=== PATIENT | male | born 1960 | race Caucasian/White ===

== ENCOUNTER 2023-09-04 04:11 | Inpatient (IN) | payer MEDICARE, SELFPAY ==
[2023-09-04] VITALS (23 sets, daily range): BP systolic 98–144; BP diastolic 61–98; PULSE 77–112; RESP 13–20; TEMP 36.1–36.8; O2SAT 88–98
--- NOTE | ~2023-09-04 | CT_ITS ---
CT of the Abdomen and Pelvis: Indication: Right flank pain Technique: 2.5 mm axial scans were obtained through the abdomen and pelvis following intravenous adm inistration of 100 cc of Omnipaque 350. Dose reduction technique was used on this scan by utilizing a utomated exposure control and iterative reconstruction technique. The dose-length product (DLP) was 1 896.56 mGy-cm. Findings: Scans through the lung bases are unremarkable. Questionable minimally nodular contour of liver. The spleen, pancreas, gallbladder, adrenals and kidn eys are within normal limits. There are atherosclerotic calcifications of the aorta. No lymphadenopa thy. No bowel obstruction or bowel wall thickening. There is no evidence to suggest acute appendicitis. Images through the pelvis were performed. Urinary bladder unremarkable. No pelvic mass seen. No ascit es. Impression: No acute abnormality seen. Questionable minimal nodularity liver contour. Correlate for early cirrhotic change. Reviewed, dictated and finalized at [facility]. Impression: No acute abnormality seen. Questionable minimal nodularity liver contour. Correlate for early cirrhotic ch brannon.
--- NOTE | ~2023-09-04 | CT_ITS ---
EXAMINATION: CT lumbar spine wo con DATE: 09/04/2023 19:43 INDICATION: mid/low back pain radiating to right side . TECHNIQUE: Computed tomography (CT) of the lumbar spine was performed with intravenous contrast. Auto mated exposure control and iterative reconstruction technique were employed. The dose-length product was 1414.21 mGy-cm. COMPARISON: None. FINDINGS: 4 nonrib-bearing lumbar-type vertebral bodies. Sacralization of L5. Rudimentary disc at L5- S1. Pedicles intact. 3 mm anterolisthesis at L4-5. Multilevel vertebral body height loss and mild ant erior wedge deformities, likely physiologic/chronic. Multilevel mild disc space narrowing. Multilevel significant marginal osteophytosis, including numerous large bridging osteophytes. Multilevel facet hypertrophy and sclerosis, severe in the right lower lumbar spine where there is multilevel fusion. M ultilevel moderate bilateral neural foraminal narrowing. Multilevel moderate central canal narrowing. IMPRESSION: No acute fracture or traumatic malalignment in the lumbar spine. Multilevel degenerative disc disease and facet arthropathy including large bridging marginal and face t osteophytes. Multilevel moderate bilateral neural foraminal and central canal narrowing. Reviewed, dictated and finalized at [facility]. IMPRESSION: No acute fracture or traumatic malalignment in the lumbar spine. Multilevel degenerative disc disease and facet arthropathy including large brid ging marginal and facet osteophytes. Multilevel moderate bilateral neural foraminal and central canal narrowing.
--- NOTE | ~2023-09-04 | US_ITS ---
EXAMINATION: US venous doppler [facility] DATE: 09/04/2023 22:57 INDICATION: Bilateral lower extremity edema . TECHNIQUE: Grayscale images without and with compression and Doppler images of the bilateral lower ex tremity veins were obtained. COMPARISON: None FINDINGS: The right common femoral vein, profunda (deep) femoral vein, femoral vein, popliteal vein, peroneal v ein, posterior tibial veins, gastrocnemius vein, and greater saphenous vein are patent. The left common femoral vein, profunda (deep) femoral vein, femoral vein, popliteal vein, peroneal v ein, posterior tibial veins, gastrocnemius vein, and greater saphenous vein are patent. IMPRESSION: Patent bilateral lower extremity veins. No evidence of deep venous thrombosis. Reviewed, dictated and finalized at [facility].
--- NOTE | ~2023-09-04 | XR_ITS ---
Portable chest x-ray Comparison: None Clinical History: Dyspnea Findings: Lungs are clear, without focal consolidation or pleural effusion. Cardiomediastinal silho uette is unremarkable. Bones and soft tissues are unremarkable. Impression: Clear lungs. Reviewed, dictated and finalized at [facility]. Impression: Clear lungs.
--- NOTE | ~2023-09-04 | CT_ITS ---
EXAMINATION: CTA chest PE protocol DATE: 09/04/2023 08:13 INDICATION: Dyspnea TECHNIQUE: Computed tomography angiography (CTA) of the chest was performed with 100 mL Omnipaque-350 intravenous contrast timed to evaluate the pulmonary arteries. Coronal maximum intensity projection 3D-reconstructions were created by the technologist. Automated exposure control and iterative reconst ruction technique were employed. Exam dose: 1022.18 mGy-cm total exam DLP. COMPARISON: 09/04/2023 portable AP chest FINDINGS: There is diagnostic contrast enhancement of the pulmonary arteries and no evidence of pulmo nary embolism. There is atherosclerotic calcification of the thoracic aorta, great vessels and coronary artery calci fication. No thoracic aortic aneurysm or dissection. No hilar or mediastinal mass lesion or lymphadenopathy. Normal morphology of the adrenal glands. Small sliding hiatal hernia. Moderate emphysematous changes of the lungs. Minimal dependent atelectasis in the lower lobes primari ly, to a lesser extent lingula and right upper lobe. Diffuse idiopathic skeletal hyperostosis of the thoracolumbar spine. Likely chronic mild anterior wedge compression fracture deformities of T3 and T4. No suspicious osteolytic or osteoblastic lesions are noted. IMPRESSION: No evidence of pulmonary embolism Emphysema Minimal dependent atelectasis of the lungs Small sliding hiatal hernia Diffuse idiopathic skeletal hyperostosis of the thoracic spine Likely chronic mild anterior wedge compression fractures of T3 and T4 Reviewed, dictated and finalized at [facility]. Reviewed, dictated and finalized at [facility].
--- NOTE | 2023-09-04 04:18 | ECG_ITS ---
Measurements Intervals Lyle Rate: 101 P: 26 CT: 154 QRS: 19 QRSD: 94 T: 31 QT: 348 QTc: 453 Interpretive Statements SINUS TACHYCARDIA ATRIAL PREMATURE COMPLEXES EARLY PRECORDIAL R/S TRANSITION NONSPECIFIC ST & T-WAVE ABNORMALITY- DIFFUSE LEADS BASELINE ARTIFACT- I, II, III, AVR, AVL, AVF ABNORMAL ECG NO PREVIOUS ECG AVAILABLE FOR COMPARISON Electronically Signed On 09-04-2023 6:39:43 CDT by Pantera Paris D.O.
[2023-09-04] MEDS: ONDANSETRON INJ 4 MG/2 ML VIAL IV PUSH (04:23)
[2023-09-04] MEDS: HYDROmorphone HCL INJ (*CRX) 1 MG/ML SYR IV PUSH ×2 (04:23→04:56)
[2023-09-04 04:39] LABS: Basophils Absolute Auto 0.1 K/mm3 (0.0-0.1); Basophils Percent Auto 0.7 % (0.2-1.2); Eosinophils Absolute Auto 0.1 K/mm3 (0-0.3); Eosinophils Percent Auto 0.7 % (0-4.4); Hematocrit 43.8 % (42.0-52.0); Hemoglobin 15.1 g/dL (14.0-18.0); Immature Granulocyte Absolute 0.01 K/mm3 (0.00-0.031); Immature Granulocyte Percent A 0.1 % (0-0.5); Lymphocytes Absolute Auto 1.82 K/mm3 (0.9-3.2); Lymphocytes Percent Auto 23.7 % (18.3-44.2); Mean Corpuscular HGB Conc 34.5 g/dl (32-36); Mean Corpuscular Hemoglobin 36.7 pg (26-34); Mean Corpuscular Volume 106.3 fl (80-100); Mean Platelet Volume 9.3 fl (7.4-10.4); Monocytes Absolute Auto 0.8 K/mm3 (0.1-0.6); Monocytes Percent Auto 9.9 % (2.6-8.5); Neutrophils Percent Auto 64.9 % (45.5-73.1); Platelet Count Result 238 k/mm3 (150-375); Red Blood Count 4.12 M/mm3 (4.6-6.20); Red Cell Distribution Width 13.3 % (11.5-14.5); White Blood Count 7.7 K/mm3 (4.5-10.0)
[2023-09-04 04:48] LABS: Lipase 269 U/L (23-300); Magnesium 1.9 mg/dL (1.6-2.3)
[2023-09-04 04:49] LABS: Lactic Acid Reflex 1.8 mmol/L (0.7-2.0)
[2023-09-04 04:51] LABS: INR 1.1; Prothrombin Time 14.2 Seconds (11.1-14.7)
--- NOTE | 2023-09-04 04:52 | ED.GENADULT ---
HPI - General Adult General Chief complaint: Abdominal Pain <Robbie Huynh MD - Last Filed: 09/04/23 04:56> Stated complaint: RIGHT FLANK PAIN <Robbie Huynh MD - Last Filed: 09/04/23 04:56> History of Present Illness HPI narrative: Patient is a 63-year-old gentleman who presents emergency department with chief complaint of right flank pain. Patient reports that 2 days been having pain in the right flank area patient reports similar to whenever hand urinary tract infection and went back to his kidney patient states the last episode was about a year ago patient also reports that he has history being unable to bend over and manage his toenails the patient has also history of diabetes and history of venous insufficiency <Robbie Huynh MD - Last Filed: 09/04/23 04:56> Related Data Allergies/adverse reactions: Allergies Allergy/AdvReac Type Severity Reaction Status Date / Time Penicillins Allergy Intermediate rash Verified 09/04/23 04:15 <Robbie Huynh MD - Last Filed: 09/04/23 04:56> Review of Systems Review of Systems: A 10 system review of systems was completed on the patient and is negative except for what is stated in the HPI. Nursing and ancillary documentation was reviewed. <Robbie Huynh MD - Last Filed: 09/04/23 04:56> PMFSH Past Medical History Medical History: Medical History Bilateral foot pain BMI 37.0-37.9, adult Calcaneal spur of both feet Diabetic neuropathy, painful Dietary counseling and surveillance (08/17/16) Encounter for screening for malignant neoplasm of prostate Routine physical examination Screening for colon cancer Screening for lipid disorders Screening for thyroid disorder Type 2 diabetes mellitus without complications Venous insufficiency <Robbie Huynh MD - Last Filed: 09/04/23 04:56> Family History Family History: Family History Father Family history of diabetes mellitus in first degree relative Cancer Mother Sibling No problems noted. <Robbie Huynh MD - Last Filed: 09/04/23 04:56> Social History Social History: Social History Smoking packs per day: 0.75 Smoking cigarettes per day: 15.0 Years smoked: 40 Smoking pack-years: 30.00 Smoking status: Current every day smoker Tobacco type: cigarettes Second hand tobacco smoke exposure: Yes Alcohol intake: current Substance use: current Substance use type: marijuana Living arrangements: alone Occupation/Education: retired Additional occupation/education comments: fork lift Gender identity (if verbalized by the patient): Male <Robbie Huynh MD - Last Filed: 09/04/23 04:56> Exam Narrative: GENERAL: Well-appearing, well-nourished, and in no acute distress. HEAD: Normocephalic, atraumatic. EYES: PERRLA and EOMI. ENT: Nares clear, no rhinorrhea or epistaxis. Mucous membranes moist. NECK: Supple. CHEST: Clear to auscultation. No respiratory distress. HEART: Regular rate and rhythm. No murmur heard. Normal peripheral pulses. ABDOMEN: Soft, nontender, nondistended, normal active bowel sounds. EXTREMITIES: Normal range of motion. No edema. SKIN: Warm, dry, no rash.Dusky appearance to bilateral lower extremities consistent with venous insufficiency. Toenails curling over NEURO: No focal deficits. Alert and oriented x3. PSYCH: Normal mood and affect. <Robbie Huynh MD - Last Filed: 09/04/23 04:56> Course Vital Signs Vital signs: Vital Signs Temperature 98.3 F 09/04/23 04:07 Pulse Rate 107 H 09/04/23 04:07 Respiratory Rate 20 09/04/23 04:07 Blood Pressure 144/98 H 09/04/23 04:07 Pulse Oximetry 98 09/04/23 04:07 Oxygen De
[2023-09-04 04:53] LABS: Partial Thromboplastin Time 29.8 SECONDS (22.3-36.8)
[2023-09-04 04:56] LABS: Alanine Aminotransferase 44 U/L (6-50); Albumin Level 4.1 g/dL (3.5-5.1); Alkaline Phosphatase 108 U/L (38-126); Anion Gap 5 mmol/L (8-16); Aspartate Amino Transferase 78 U/L (17-59); Bilirubin,Total 1.1 mg/dL (0.2-1.3); Blood Urea Nitrogen 17 mg/dL (9-20); Calcium 9.3 mg/dL (8.4-10.2); Carbon Dioxide 29 mmol/L (22-30); Chloride 95 mmol/L (98-107); Estimated CRCL calculation 124 ml/min; Estimated Glomerular Filt Rate > 60; Glucose 175 mg/dL (65-110); Potassium 3.6 mmol/L (3.4-5.0); Sodium 129 mmol/L (137-145)
[2023-09-04 05:01] LABS: Troponin I < 0.012 ng/mL (0.000-0.034)
[2023-09-04 05:04] LABS: NT Pro B Type Natriuretic Pept 31 pg/mL (19.9-100)
[2023-09-04 05:21] LABS: Procalcitonin 0.1 ng/mL
[2023-09-04 05:23] LABS: Appearance Urine Clear (Clear); Bilirubin Urine Negative (Negative); Blood Urine Negative (Negative); Color Urine Yellow (Yellow); Glucose Urine UA Negative (Negative); Ketones Urine Negative (Negative); Leukocyte Esterase Ur Negative LEU/UL (Negative); Nitrate Urine Negative (Negative); Protein Urine Negative (Negative); Specific Grav Ur 1.015 (1.001-1.035)
[2023-09-04 05:32] LABS: Add Urine Microscopic? NO
--- NOTE | 2023-09-04 06:55 | PC.NURSE ---
Ambulated in the room with pulse oximetry. Patient states he is not comfortable walking. He reports being weak and unbalanced. Patient appears unsteady on his feet. Heart rate noted to be 140 and pulse oximetry decreased to 86. Patient appears short of breath and expresses that to this RN. Decision to sit back down without incident. EDP made aware.
--- NOTE | 2023-09-04 08:55 | ADMGEN ---
This patient, Demian Gonzalez, was admitted to Medical Room 340-01. Patient/family oriented to hospital policies and general routines including ID bracelet, bed and alarms, visiting hours, pain management, procedures, bathroom and other care routines, personal items, smoking policy, room service/diet, and visiting hours. Information on how to activate the Rapid Response Team has been discussed. Patient/Family are encouraged to report perceived risks to care and to ask questions if they do not understand what they are told or what they should do.
[2023-09-04 09:20] LABS: Influenza A QL RT-PCR Negative (Negative); Influenza B QL RT-PCR Negative (Negative); RSV RNA, RT-PCR Negative (Negative); SARS-CoV-2 RNA PCR Negative (Negative)
--- NOTE | 2023-09-04 09:45 | PCPTNOTE ---
Therapy waiting on hospitalist complete work up prior to PT evaluation. RN aware.
--- NOTE | 2023-09-04 12:19 | PCOTNOTE ---
Therapy waiting on hospitalist complete work up prior to OT evaluation. RN aware.
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
[2023-09-04] MEDS: ACETAMINOPHEN 325 MG TABLET 650 MG PO (17:11)
[2023-09-04 17:17] LABS: Anion Gap 7 mmol/L (8-16); Blood Urea Nitrogen 26 mg/dL (9-20); Calcium 9.2 mg/dL (8.4-10.2); Carbon Dioxide 29 mmol/L (22-30); Chloride 93 mmol/L (98-107); Estimated CRCL calculation 84 ml/min; Estimated Glomerular Filt Rate > 60; Glucose 171 mg/dL (65-110); Sodium 129 mmol/L (137-145)
[2023-09-04] MEDS: IPRATROPIUM 0.5 MG/ALBUTEROL SULFATE 2.5 MG AMPUL.NEB 3 ML INHALATION (19:54)
[2023-09-04] MEDS: CYCLOBENZAPRINE HCL 10 MG TABLET PO (20:05)
[2023-09-04] MEDS: SODIUM CHLORIDE 0.9% IV 1,000 ML 150 ML IV CONT (20:06)
[2023-09-04 20:41] LABS: Creatinine Urine 108.5 mg/dL; Urea Random Urine 617 MG/DL
[2023-09-04 21:09] LABS: Sodium Urine Random 73 meq/L
[2023-09-04] MEDS: HYDROcodone/acetaminophen (*CRX) 5-325 MG TABLET 1 TAB PO (21:32)
--- NOTE | 2023-09-04 23:35 | PCRCNOTE ---
Patient refused apnea link stating he tired of all these tests being done. His bill is already going to be high. RT instructed patient to call RN if he changes his mind. Patient also refused 0200 updraft treatment. Next scheduled treatment is 0800.
[2023-09-04] MEDS: MORPHINE SULFATE (*CRX) 2 MG/ML INJ IV PUSH (23:46)
[2023-09-05] VITALS (17 sets, daily range): BP systolic 105–133; BP diastolic 60–76; PULSE 79–102; RESP 16–20; TEMP 36.3–36.6; O2SAT 92–98
--- NOTE | 2023-09-05 02:55 | PCRCNOTE ---
Patient refused 0200 updraft treatment due to not wanting to be awakened. RT told pt to RN call if he felt sob. RN to RT to pt for treatment. Updraft treatment to resume at 0800.
[2023-09-05] MEDS: SODIUM CHLORIDE 0.9% IV 1,000 ML 150 ML IV CONT ×4 (03:07→21:00)
[2023-09-05] MEDS: HYDROcodone/acetaminophen (*CRX) 5-325 MG TABLET 1 TAB PO ×2 (03:07→09:22)
[2023-09-05] MEDS: MORPHINE SULFATE (*CRX) 2 MG/ML INJ IV PUSH (05:01)
[2023-09-05] MEDS: IPRATROPIUM 0.5 MG/ALBUTEROL SULFATE 2.5 MG AMPUL.NEB 3 ML INHALATION ×2 (08:52→19:59)
[2023-09-05 09:09] LABS: Alanine Aminotransferase 39 U/L (6-50); Albumin Level 3.9 g/dL (3.5-5.1); Alkaline Phosphatase 89 U/L (38-126); Anion Gap 4 mmol/L (8-16); Aspartate Amino Transferase 61 U/L (17-59); Bilirubin,Total 1.2 mg/dL (0.2-1.3); Blood Urea Nitrogen 24 mg/dL (9-20); Calcium 8.7 mg/dL (8.4-10.2); Carbon Dioxide 31 mmol/L (22-30); Chloride 92 mmol/L (98-107); Estimated CRCL calculation 124 ml/min; Estimated Glomerular Filt Rate > 60; Glucose 127 mg/dL (65-110); Potassium 3.4 mmol/L (3.4-5.0); Sodium 127 mmol/L (137-145)
[2023-09-05] MEDS: ENOXAPARIN 40 MG/0.4 ML SYRINGE SUB-Q (09:15)
[2023-09-05 09:18] LABS: Basophils Percent Auto 0.6 % (0.2-1.2); Eosinophils Absolute Auto 0.1 K/mm3 (0-0.3); Eosinophils Percent Auto 0.8 % (0-4.4); Hematocrit 40.8 % (42.0-52.0); Hemoglobin 14.1 g/dL (14.0-18.0); Immature Granulocyte Absolute 0.02 K/mm3 (0.00-0.031); Immature Granulocyte Percent A 0.3 % (0-0.5); Lymphocytes Absolute Auto 1.63 K/mm3 (0.9-3.2); Lymphocytes Percent Auto 23.1 % (18.3-44.2); Mean Corpuscular HGB Conc 34.6 g/dl (32-36); Mean Corpuscular Hemoglobin 36.8 pg (26-34); Mean Corpuscular Volume 106.5 fl (80-100); Mean Platelet Volume 9.5 fl (7.4-10.4); Monocytes Absolute Auto 0.6 K/mm3 (0.1-0.6); Monocytes Percent Auto 9.1 % (2.6-8.5); Neutrophils Absolute Auto 4.7 K/mm3 (1.3-6.7); Neutrophils Percent Auto 66.1 % (45.5-73.1); Platelet Count Result 234 k/mm3 (150-375); Red Blood Count 3.83 M/mm3 (4.6-6.20); Red Cell Distribution Width 14.2 % (11.5-14.5); White Blood Count 7.1 K/mm3 (4.5-10.0)
[2023-09-05] MEDS: PERFLUTREN LIPID MICROSPHERES 1.5 ML VIAL DILUTED TO 10 ML TOTAL VOLUME IV PUSH (13:51)
[2023-09-05] MEDS: HYDROcodone/acetaminophen (*CRX) 10-325 MG TABLET 1 TAB PO ×2 (15:06→21:04)
--- NOTE | 2023-09-05 15:54 | PM.IMPN ---
Progress Note: A&P Assessment and Plan (1) Hypoxia: Code(s): R09.02 - Hypoxemia Status: Acute Assessment and Plan: scheduled bronchodilators likely need home O2 eval prior to d/c (2) Right-sided back pain: Code(s): M54.9 - Dorsalgia, unspecified Status: Acute Assessment and Plan: CT of the abdomen and pelvis did not show any acute intra-abdominal or pelvic process CTA of the chest was negative for pulmonary embolism. Urinalysis was unremarkable. Gallbladder was read as normal on CT scan. CT scan of the abdomen showed likely chronic wedge compression fractures of T3 and T4 but did not make any mention of the lumbar spine. (3) Dehydration: Code(s): E86.0 - Dehydration Status: Acute Assessment and Plan: secondary to poor oral intake Continue IV fluid rehydration with close monitoring of volume status, renal function, and electrolytes (4) COPD with emphysema: Code(s): J43.9 - Emphysema, unspecified Status: Chronic Assessment and Plan: see above (5) Hyponatremia: Code(s): E87.1 - Hypo-osmolality and hyponatremia Status: Acute Assessment and Plan: Sodium and chloride are low. Continue IV fluid rehydration with close monitoring of volume status, renal function, and electrolytes sodium chloride tablets ordered BID (6) Type 2 diabetes mellitus: Code(s): E11.9 - Type 2 diabetes mellitus without complications Status: Chronic Assessment and Plan: accuchecks hypoglycemic protocol not currently on insulin at home, may initiate sliding scale if needed (7) Hypertension: Qualifiers: Hypertension type: primary hypertension Qualified Code(s): I10 - Essential (primary) hypertension Code(s): I10 - Essential (primary) hypertension Status: Chronic Assessment and Plan: stable; continue to monitor (8) Alcohol abuse: Code(s): F10.10 - Alcohol abuse, uncomplicated Status: Chronic Assessment and Plan: CIWA protocol Plan Echocardiogram and apnea link have been ordered. Smoking cessation is encouraged; he declines the need for nicotine patch. Initiate fall precautions. PT/OT consulted. Check orthostatic vital signs. Subjective Date/time seen: 09/05/23 15:54 Interval history: Patient sitting up in chair on exam today, in no acute distress. He continues to endorse right flank pain, but on exam, it presents as lower musculoskeletal back pain and not near the kidneys. Will transition to PO pain control, consider muscle relaxer. ECHO today was unrevealing. CT negative for PE, DVT dopps negative. PT/OT ordered as he is debilitated. Review of Systems Review of Systems: All systems reviewed & are unremarkable except as noted in HPI and below Exam Narrative: General: Well-developed, chronically ill-appearing gentleman HEENT: Normocephalic, atraumatic. PERRL, EOMI. Neck: Supple. Full fung. No obvious JVD or lymphadenopathy. Respiratory: Respirations are nonlabored. Lung sounds are diminished but clear to auscultation. Cardiovascular: RR, tachycardic. Gastrointestinal: Abdomen is soft, morbidly obese, and nondistended with positive bowel sounds. Non tneder to palpation. Skin: Warm and dry. Chronic skin changes of the bilateral lower legs. Extremities: No cyanosis or clubbing. Chronic pitting edema of the lower legs. Spine: He has some midline vertebral tenderness over the upper lumbar vertebrae with pain on palpation of the right lumbar paraspinous muscles. Neurological: Alert. Cranial nerves 2-12 are grossly intact. No gross focal deficits to casual conversation. Psychiatric: Pleasant and cooperative with normal mood and flat affect. Objective Data Vital Signs Vital Signs: Vital Signs - 24 hr 09/04/23 16:04 09/04/23 19:54 09/04/23 19:59 Temperature Pulse Rate 102 H 86 86 Respiratory Rate 18 Blood Pressure Pulse Oximet
[2023-09-05 17:16] LABS: Glucose Point of Care 169 mg/dl (65-105)
[2023-09-05] MEDS: CYCLOBENZAPRINE HCL 10 MG TABLET PO (17:20)
[2023-09-05] MEDS: SODIUM CHLORIDE 500 MG TABLET PO (17:20)
[2023-09-05 18:25] LABS: Hemoglobin A1C 7.1 % (<5.7)
--- NOTE | 2023-09-05 19:12 | ECHO_ITS ---
Patient Info Name: Demian Gonzalez Age: 63 years : 1960 Gender: Male Ht: 73 in Wt: 328 lbs BSA: 2.83 m2 HR: 110 bpm BP: 105 / 64 mmHg Heart Rhythm: Tachycardia Technical Quality: Poor Exam Date: 09/05/2023 1:04 PM Exam Location: Echo Lab Patient Status: Inpatient Admit Date: 09/04/2023 Staff Ordering Physician: Vivian Cho PA-C Buckle Stapler: Attending Provider: Radha Mcclure MD Referring Physician: Tammie COATES; Exam Type: CA echo dop color flow w con Study Info Indications R00.0 - Tachycardia, unspecified Complete two-dimensional, color flow and Doppler transthoracic echocardiogram is performed with contrast to opacify the left ventricle and to improve the deliniation of the left ventricle endocardial borders. Contrast/Agitated Saline Contrast/Ag. Saline: Definity Amount: 2.00 ml Existing IV Access: Yes IV Access Condition: patent with no signs of infiltration Reason for Poor Study: patient body habitus Summary 1. Technically suboptimal study due to poor sonographic images. 2. Definity contrast administered improved wall motion interpretation. 3. Left ventricular chamber dimension is normal. 4. Left ventricular systolic function is normal, estimated at 65-70%. 5. The left ventricular diastolic function is grade I diastolic dysfunction. 6. E/e' 8 is minimally elevated. 7. Right atrial chamber dimension is mildly enlarged. 8. There is trivial pericardial effusion. Left Ventricle Technically suboptimal study due to poor sonographic images. E/e' 8 is minimally elevated. Definity contrast administered improved wall motion interpretation. Left ventricular chamber dimension is normal. Left ventricular systolic function is normal, estimated at 65-70%. The left ventricular diastolic function is grade I diastolic dysfunction. Right Ventricle Right ventricular systolic function is normal and with normal TAPSE 2.2 cm. Right ventricular chamber dimension is normal. Left Atria Left atrial chamber dimension is normal. Right Atria Right atrial chamber dimension is mildly enlarged. Aortic Valve The aortic valve is not well visualized. There is no aortic valve stenosis. There is no aortic valve regurgitation. Pulmonic Valve There is no pulmonic regurgitation. Mitral Valve There is no mitral valve stenosis. There is no mitral valve regurgitation. Tricuspid Valve There is no tricuspid valve regurgitation. Pericardium/Pleural There is trivial pericardial effusion. Inferior Vena Cava Normal inferior vena cava with >50% collapse upon inspiration consistent with normal right atrial pressure, 5 mmHg. Aorta The aortic root size at the sinus of Valsalva is not well visualized. Left Ventricular Outflow Tract Name Value Normal LVOT 2D LVOT Diameter 2.04 cm LVOT Doppler LVOT Peak Gradient 5 mmHg LVOT Mean Gradient 3 mmHg LVOT VTI 22.24 cm LVOT VTI/AV VTI Ratio 0.81 LVOT Stroke Volume 72.83 ml LVOT CO 7.01 l/min LVOT CI
[2023-09-06] VITALS (15 sets, daily range): BP systolic 119–129; BP diastolic 71–79; PULSE 72–101; RESP 18–20; TEMP 36.4–36.9; O2SAT 93–100
[2023-09-06 00:43] LABS: Glucose Point of Care 130 mg/dl (65-105)
[2023-09-06] MEDS: HYDROcodone/acetaminophen (*CRX) 10-325 MG TABLET 1 TAB PO ×4 (01:09→19:59)
[2023-09-06] MEDS: SODIUM CHLORIDE 0.9% IV 1,000 ML 150 ML IV CONT (03:57)
[2023-09-06] MEDS: CYCLOBENZAPRINE HCL 10 MG TABLET PO ×2 (03:57→22:44)
[2023-09-06 06:21] LABS: Glucose Point of Care 100 mg/dl (65-105)
[2023-09-06 06:29] LABS: Basophils Percent Auto 0.5 % (0.2-1.2); Eosinophils Absolute Auto 0.1 K/mm3 (0-0.3); Eosinophils Percent Auto 1.4 % (0-4.4); Hematocrit 38.3 % (42.0-52.0); Immature Granulocyte Absolute 0.02 K/mm3 (0.00-0.031); Immature Granulocyte Percent A 0.3 % (0-0.5); Lymphocytes Absolute Auto 1.56 K/mm3 (0.9-3.2); Lymphocytes Percent Auto 26.4 % (18.3-44.2); Mean Corpuscular HGB Conc 33.9 g/dl (32-36); Mean Corpuscular Volume 106.1 fl (80-100); Mean Platelet Volume 9.5 fl (7.4-10.4); Monocytes Absolute Auto 0.6 K/mm3 (0.1-0.6); Monocytes Percent Auto 10.5 % (2.6-8.5); Neutrophils Absolute Auto 3.6 K/mm3 (1.3-6.7); Neutrophils Percent Auto 60.9 % (45.5-73.1); Platelet Count Result 209 k/mm3 (150-375); Red Blood Count 3.61 M/mm3 (4.6-6.20); Red Cell Distribution Width 13.9 % (11.5-14.5); White Blood Count 5.9 K/mm3 (4.5-10.0)
[2023-09-06 06:41] LABS: Alanine Aminotransferase 33 U/L (6-50); Albumin Level 3.4 g/dL (3.5-5.1); Alkaline Phosphatase 78 U/L (38-126); Anion Gap 4 mmol/L (8-16); Aspartate Amino Transferase 54 U/L (17-59); Bilirubin,Total 1.1 mg/dL (0.2-1.3); Blood Urea Nitrogen 15 mg/dL (9-20); CRP 0.8 mg/dL (<1.0); Carbon Dioxide 27 mmol/L (22-30); Chloride 98 mmol/L (98-107); Creatine Kinase 590 U/L (55-170); Estimated CRCL calculation 161 ml/min; Estimated Glomerular Filt Rate > 60; Glucose 117 mg/dL (65-110); Phosphorus 2.4 mg/dL (2.5-4.5); Potassium 3.3 mmol/L (3.4-5.0); Sodium 129 mmol/L (137-145)
[2023-09-06] MEDS: IPRATROPIUM 0.5 MG/ALBUTEROL SULFATE 2.5 MG AMPUL.NEB 3 ML INHALATION ×3 (07:03→19:46)
[2023-09-06] MEDS: SODIUM CHLORIDE 500 MG TABLET PO ×2 (08:21→17:33)
[2023-09-06] MEDS: ENOXAPARIN 40 MG/0.4 ML SYRINGE SUB-Q (08:21)
--- NOTE | 2023-09-06 09:52 | IVDEFINITY ---
Prior to administration of IV Definity the patient was educated on the risks and benefits of the imaging enhancing agent including potential adverse side effects. The patient verbalized understanding. Allergies were verified. No exclusion criteria were identified and at least one of the following inclusion criteria were met: 1) physician request, 2) patient technically difficult to image (per the [place] [employer] guidelines of two or more segments not discernable within the apical view), or 3) questionable left ventricular function. ?
[2023-09-06 12:18] LABS: Glucose Point of Care 118 mg/dl (65-105)
[2023-09-06] MEDS: LIDOCAINE 5% PATCH 1 PATCH TRANSDERM (14:44)
--- NOTE | 2023-09-06 15:42 | PM.IMPN ---
Progress Note: A&P Assessment and Plan (1) Hypoxia: Code(s): R09.02 - Hypoxemia Status: Resolved Assessment and Plan: scheduled bronchodilators (2) Right-sided back pain: Code(s): M54.9 - Dorsalgia, unspecified Status: Acute Assessment and Plan: CT of the abdomen and pelvis did not show any acute intra-abdominal or pelvic process CTA of the chest was negative for pulmonary embolism. Urinalysis was unremarkable. Gallbladder was read as normal on CT scan. CT scan of the abdomen showed likely chronic wedge compression fractures of T3 and T4 but did not make any mention of the lumbar spine. continue PO pain control, muscle relaxer and lidocaine patch does not want PT in home health (3) Dehydration: Code(s): E86.0 - Dehydration Status: Resolved Assessment and Plan: secondary to poor oral intake d/c IVF today monitor renal function and electrolytes (4) COPD with emphysema: Code(s): J43.9 - Emphysema, unspecified Status: Chronic Assessment and Plan: see above (5) Hyponatremia: Code(s): E87.1 - Hypo-osmolality and hyponatremia Status: Acute Assessment and Plan: Sodium and chloride are low. sodium chloride tablets ordered BID (6) Type 2 diabetes mellitus: Code(s): E11.9 - Type 2 diabetes mellitus without complications Status: Chronic Assessment and Plan: accuchecks hypoglycemic protocol not currently on insulin at home, may initiate sliding scale if needed (7) Hypertension: Qualifiers: Hypertension type: primary hypertension Qualified Code(s): I10 - Essential (primary) hypertension Code(s): I10 - Essential (primary) hypertension Status: Chronic Assessment and Plan: stable; continue to monitor (8) Alcohol abuse: Code(s): F10.10 - Alcohol abuse, uncomplicated Status: Chronic Assessment and Plan: CIWA protocol Plan Echocardiogram unrevealing Apnea link deferred by patient Smoking cessation is encouraged; he declines the need for nicotine patch. Subjective Date/time seen: 09/06/23 15:42 Interval history: Patient sitting up in chair on exam today, in no acute distress. He continues to endorse right flank pain, but on exam, it presents as lower musculoskeletal back pain and not near the kidneys. Will transition to PO pain control, muscle relaxer and lidocaine patch. PT/OT ordered as he is debilitated. patient is not interested in home health PT. D/C fluids and will recheck labs in am, if hypokalemia is improved and labs stable, will plan for d/c home. Review of Systems Review of Systems: All systems reviewed & are unremarkable except as noted in HPI and below Exam Narrative: General: Well-developed, chronically ill-appearing gentleman HEENT: Normocephalic, atraumatic. PERRL, EOMI. Neck: Supple. Respiratory: Respirations are nonlabored. Lung sounds are diminished but clear to auscultation. Cardiovascular: RRR Gastrointestinal: Abdomen is soft, morbidly obese, and nondistended with positive bowel sounds. Non tender to palpation. Skin: Warm and dry. Chronic skin changes of the bilateral lower legs. Extremities: No cyanosis or clubbing. Chronic pitting edema of the lower legs. Spine: He has some midline vertebral tenderness over the upper lumbar vertebrae with pain on palpation of the right lumbar paraspinous muscles. Neurological: Alert. Cranial nerves 2-12 are grossly intact. No gross focal deficits to casual conversation. Psychiatric: Pleasant and cooperative with normal mood and flat affect. Objective Data Vital Signs Vital Signs: Vital Signs - 24 hr 09/05/23 16:04 09/05/23 19:59 09/05/23 20:04 Temperature Pulse Rate 83 85 Respiratory Rate 18 Blood Pressure Pulse Oximetry 93 Oxygen Delivery Room Air 09/05/23 20:06 09/05/23 20:12 09/05/23 20:18 Temperature 97.3 F L Pulse Rate
[2023-09-06 17:21] LABS: Glucose Point of Care 139 mg/dl (65-105)
[2023-09-06 23:19] LABS: Glucose Point of Care 117 mg/dl (65-105)
[2023-09-07] VITALS (9 sets, daily range): BP systolic 113–147; BP diastolic 68–87; PULSE 72–92; RESP 18–20; TEMP 36.4; O2SAT 95–96
[2023-09-07] MEDS: HYDROcodone/acetaminophen (*CRX) 10-325 MG TABLET 1 TAB PO (01:45)
[2023-09-07 06:43] LABS: Basophils Percent Auto 0.4 % (0.2-1.2); Eosinophils Absolute Auto 0.2 K/mm3 (0-0.3); Eosinophils Percent Auto 3.3 % (0-4.4); Hematocrit 39.4 % (42.0-52.0); Hemoglobin 13.3 g/dL (14.0-18.0); Immature Granulocyte Absolute 0.01 K/mm3 (0.00-0.031); Immature Granulocyte Percent A 0.2 % (0-0.5); Lymphocytes Percent Auto 28.8 % (18.3-44.2); Mean Corpuscular HGB Conc 33.8 g/dl (32-36); Mean Corpuscular Hemoglobin 36.6 pg (26-34); Mean Corpuscular Volume 108.5 fl (80-100); Mean Platelet Volume 9.2 fl (7.4-10.4); Monocytes Absolute Auto 0.5 K/mm3 (0.1-0.6); Monocytes Percent Auto 11.5 % (2.6-8.5); Neutrophils Absolute Auto 2.5 K/mm3 (1.3-6.7); Neutrophils Percent Auto 55.8 % (45.5-73.1); Platelet Count Result 194 k/mm3 (150-375); Red Blood Count 3.63 M/mm3 (4.6-6.20); Red Cell Distribution Width 13.8 % (11.5-14.5); White Blood Count 4.5 K/mm3 (4.5-10.0)
[2023-09-07 07:32] LABS: Alanine Aminotransferase 36 U/L (6-50); Albumin Level 3.6 g/dL (3.5-5.1); Alkaline Phosphatase 76 U/L (38-126); Anion Gap 1 mmol/L (8-16); Aspartate Amino Transferase 55 U/L (17-59); Bilirubin,Total 1.1 mg/dL (0.2-1.3); Blood Urea Nitrogen 9 mg/dL (9-20); Calcium 8.4 mg/dL (8.4-10.2); Carbon Dioxide 33 mmol/L (22-30); Chloride 98 mmol/L (98-107); Estimated CRCL calculation 161 ml/min; Estimated Glomerular Filt Rate > 60; Glucose 109 mg/dL (65-110); Potassium 3.3 mmol/L (3.4-5.0); Sodium 132 mmol/L (137-145)
[2023-09-07 08:30] LABS: Glucose Point of Care 121 mg/dl (65-105)
[2023-09-07 08:32] LABS: Creatine Kinase 390 U/L (55-170)
[2023-09-07] MEDS: POTASSIUM CHLORIDE 20 MEQ ER TABLET PO (09:07)
[2023-09-07] MEDS: SODIUM CHLORIDE 500 MG TABLET PO (09:07)
[2023-09-07] MEDS: ENOXAPARIN 40 MG/0.4 ML SYRINGE SUB-Q (09:08)
[2023-09-07] MEDS: LIDOCAINE 5% PATCH 1 PATCH TRANSDERM (09:08)
[2023-09-07] MEDS: IPRATROPIUM 0.5 MG/ALBUTEROL SULFATE 2.5 MG AMPUL.NEB 3 ML INHALATION (09:16)
--- NOTE | 2023-09-07 11:10 | PCOTNOTE ---
Patient refused A.M. session this date. Patient stated, I want to go home, and I don't need any help with anything .
[2023-09-07 12:27] LABS: Glucose Point of Care 135 mg/dl (65-105)
--- NOTE | 2023-09-07 12:52 | PM.DS ---
DS: Admitting Diagnosis Discharge Date 09/07/23 Admitting Diagnosis right flank pain DS: Discharge Diagnosis Discharge Diagnosis (1) Hypoxia: Code(s): R09.02 - Hypoxemia Status: Resolved (2) Right-sided back pain: Code(s): M54.9 - Dorsalgia, unspecified Status: Acute Assessment and Plan: CT of the abdomen and pelvis did not show any acute intra-abdominal or pelvic process CTA of the chest was negative for pulmonary embolism. Urinalysis was unremarkable. Gallbladder was read as normal on CT scan. CT scan of the abdomen showed likely chronic wedge compression fractures of T3 and T4 but did not make any mention of the lumbar spine. examination tends towards muscle strain vs sciatic pain continue PO pain control, lidocaine patch, will d/c with Medrol dose pack as it could be sciatic does not want PT in home health (3) Dehydration: Code(s): E86.0 - Dehydration Status: Resolved (4) COPD with emphysema: Code(s): J43.9 - Emphysema, unspecified Status: Chronic (5) Hyponatremia: Code(s): E87.1 - Hypo-osmolality and hyponatremia Status: Resolved Assessment and Plan: ordered repeat BMP to be completed within 1 week (6) Type 2 diabetes mellitus: Code(s): E11.9 - Type 2 diabetes mellitus without complications Status: Chronic (7) Hypertension: Qualifiers: Hypertension type: primary hypertension Qualified Code(s): I10 - Essential (primary) hypertension Code(s): I10 - Essential (primary) hypertension Status: Chronic (8) Alcohol abuse: Code(s): F10.10 - Alcohol abuse, uncomplicated Status: Chronic Plan Echocardiogram unrevealing Apnea link deferred by patient Smoking cessation is encouraged; he declines the need for nicotine patch. DS: Summary Hospital Course Hospital Course: Patient is a 63-year-old male smoker with chronic obstructive pulmonary disease, type 2 diabetes mellitus, hypertension, morbid obesity, daily alcohol use, and venous insufficiency admitted for evaluation of right flank pain. It is worse with movement and palpation. He drinks 0.5 to 1 pint of whiskey a day and he has not had any alcohol in the last 5 days due to this pain. He has occasional GERD but it has not been any worse than usual. He has not had any recent accidents, falls, or injuries. He has chronic paresthesias and pain in his feet which is unchanged. No saddle anesthesia, bladder retention, bowel incontinence, and focal weakness. He denies fever, chills, sweats, vomiting, and diarrhea. He has not noticed any bright red blood or dark stools. He also denies hematuria, urgency, frequency, and dysuria. He has remained afebrile with stable vitals. He tested negative for influenza, RSV, and COVID. CT of the abdomen and pelvis showed no acute abnormalities but questionable minimal nodularity of the liver contour. Chest CTA was negative for pulmonary embolism but noted emphysema and minimal dependent atelectasis. Denies history of sleep apnea, congestive heart failure, and sleep apnea. Patient deferred home health PT, reports he has outpatient he can do. Will d/c on lidocaine patch and medrol dose pack as his back pain is low on the right side and likely muscular or sciatic as his work up has been benign for injury or infectious process. Repeat BMP ordered outpatient within 1 week and discussed f/u with PCP in 1-2 weeks. Status at Discharge Functional status at discharge: independent ambulation Overall status at discharge: patient is progressing back to baseline Time Spent with Patient Time attestation: Total time spent providing and/or coordinating discharge services: Exam Narrative: General: Well-developed, chronically ill-appearing gentleman HEENT: Normocephalic, atraumatic. PERRL, EOMI. Neck: Supple. Respiratory: Respirations are nonlabored. Lung sounds are diminished but clear to auscultation. Cardiovascular
[2023-09-08 20:02] LABS: Osmolality, Urine 435 mOsm/kg (50-1200)
== END 2023-09-07 14:25 | disposition home or self-care (01) | DRG 552 ==
LOC: ANHED 07:54 → ANH3MED 08:39
PROVIDERS: Emergency Medicine; Physician Assistant; Admitting Provider General Practice; Emergency Provider Emergency Medicine; PCP Family Medicine; Visit Provider Nurse Practitioner
DX: M54.59 Other low back pain (principal); E87.1 Hypo-osmolality and hyponatremia; Z68.41 Body mass index [BMI] 40.0-44.9, adult; I87.2 Venous insufficiency (chronic) (peripheral); I10 Essential (primary) hypertension; J43.9 Emphysema, unspecified; E87.6 Hypokalemia; E86.0 Dehydration; E11.40 Type 2 diabetes mellitus with diabetic neuropathy, unspecified; K21.9 Gastro-esophageal reflux disease without esophagitis; R20.2 Paresthesia of skin; F10.90 Alcohol use, unspecified, uncomplicated; F17.210 Nicotine dependence, cigarettes, uncomplicated; Z20.822 Contact with and (suspected) exposure to COVID-19
CPT/HCPCS: 36415; 71045; 71275; 72131; 74177; 80048; 80053; 80069; 80076; 81003; 82550; 82570; 82948; 83036; 83605; 83690; 83735; 83880; 83930; 83935; 84145; 84300; 84443; 84484; 84540; 85025; 85610; 85730; 86140; 87637; 93005; 93970; 94640; 96374; 96375; 96376; 97110; 97161; 97165; 97530; 97535; 99285; A9270; C8929; J1170; J1650; J2270; J2405; J7030; Q9957; Q9967

== ENCOUNTER 2023-09-20 08:12 | Outpatient (CLI) | payer MEDICARE, SELFPAY ==
[2023-09-20 12:17] LABS: Basophils Percent Auto 0.7 % (0.2-1.2); Eosinophils Absolute Auto 0.1 K/mm3 (0-0.3); Eosinophils Percent Auto 2.4 % (0-4.4); Hematocrit 47.1 % (42.0-52.0); Hemoglobin 15.6 g/dL (14.0-18.0); Immature Granulocyte Absolute 0.01 K/mm3 (0.00-0.031); Immature Granulocyte Percent A 0.2 % (0-0.5); Lymphocytes Absolute Auto 2.12 K/mm3 (0.9-3.2); Lymphocytes Percent Auto 38.3 % (18.3-44.2); Mean Corpuscular HGB Conc 33.1 g/dl (32-36); Mean Corpuscular Hemoglobin 35.9 pg (26-34); Mean Corpuscular Volume 108.5 fl (80-100); Mean Platelet Volume 10.6 fl (7.4-10.4); Monocytes Absolute Auto 0.6 K/mm3 (0.1-0.6); Monocytes Percent Auto 11.6 % (2.6-8.5); Neutrophils Absolute Auto 2.6 K/mm3 (1.3-6.7); Neutrophils Percent Auto 46.8 % (45.5-73.1); Platelet Count Result 260 k/mm3 (150-375); Red Blood Count 4.34 M/mm3 (4.6-6.20); Red Cell Distribution Width 13.2 % (11.5-14.5); White Blood Count 5.5 K/mm3 (4.5-10.0)
[2023-09-20 12:34] LABS: Alanine Aminotransferase 42 U/L (6-50); Albumin Level 4.1 g/dL (3.5-5.1); Alkaline Phosphatase 102 U/L (38-126); Anion Gap 6 mmol/L (4-12); Aspartate Amino Transferase 71 U/L (17-59); Bilirubin,Total 0.9 mg/dL (0.2-1.3); Blood Urea Nitrogen 17 mg/dL (9-20); Calcium 9.4 mg/dL (8.4-10.2); Carbon Dioxide 28 mmol/L (22-30); Chloride 100 mmol/L (98-107); Cholesterol 170 mg/dL (0-200); Creatine Kinase 139 U/L (55-170); Estimated Glomerular Filt Rate > 60; Glucose 116 mg/dL (65-110); HDL Direct 42 mg/dL; Potassium 3.5 mmol/L (3.4-5.0); Sodium 134 mmol/L (137-145); Triglycerides 84 mg/dL (<150)
[2023-09-20 12:45] LABS: LDL Cholesterol Direct 110 mg/dL
[2023-09-20 12:59] LABS: Prostate Specific Antigen 0.7 ng/mL (< OR = 4.0)
[2023-09-20 13:06] LABS: Platelet Estimate Adequate (Adequate); Schistocytes None Seen
== END 2023-09-20 08:13 | disposition home or self-care (01) ==
LOC: ANHGOSHLAB 08:13
PROVIDERS: PCP Family Medicine; Visit Provider Physician Assistant
DX: Z12.5 Encounter for screening for malignant neoplasm of prostate (principal); I87.2 Venous insufficiency (chronic) (peripheral); M54.9 Dorsalgia, unspecified; J43.9 Emphysema, unspecified; I10 Essential (primary) hypertension; E87.1 Hypo-osmolality and hyponatremia; E11.42 Type 2 diabetes mellitus with diabetic polyneuropathy
CPT/HCPCS: 36415; 80053; 80061; 82550; 84153; 85025; G0103

== ENCOUNTER 2023-10-10 11:34 | Outpatient (CLI) | payer MEDICARE, SELFPAY ==
[2023-10-10 19:30] LABS: Alanine Aminotransferase 42 U/L (6-50); Albumin Level 4.1 g/dL (3.5-5.1); Alkaline Phosphatase 104 U/L (38-126); Anion Gap 4 mmol/L (4-12); Aspartate Amino Transferase 56 U/L (17-59); Bilirubin,Total 0.8 mg/dL (0.2-1.3); Blood Urea Nitrogen 21 mg/dL (9-20); Calcium 9.8 mg/dL (8.4-10.2); Carbon Dioxide 31 mmol/L (22-30); Chloride 103 mmol/L (98-107); Estimated Glomerular Filt Rate > 60; Glucose 134 mg/dL (65-110); Potassium 4.1 mmol/L (3.4-5.0); Sodium 138 mmol/L (137-145)
== END 2023-10-10 11:35 | disposition home or self-care (01) ==
PROVIDERS: PCP Family Medicine; Visit Provider Physician Assistant
DX: R79.89 Other specified abnormal findings of blood chemistry (principal)
CPT/HCPCS: 36415; 80053

== ENCOUNTER 2023-10-12 13:03 | Outpatient (CLI) | payer MEDICARE, SELFPAY ==
--- NOTE | ~2023-10-12 | XR_ITS ---
EXAMINATION: XR mandible min 4V DATE: 10/12/2023 13:30 INDICATION: Left mandible pain. TECHNIQUE: 4 views of the mandible were obtained. COMPARISON: None. FINDINGS: Bone alignment is normal. No acute fracture. There is plate and screw fixation of left angl e of the mandible. There is mild osteoarthritis of the temporomandibular joints. IMPRESSION: 1. Mild osteoarthritis of the temporomandibular joints. Reviewed, dictated and finalized at location E.
== END 2023-10-12 13:04 | disposition home or self-care (01) ==
PROVIDERS: PCP Family Medicine; Visit Provider Physician Assistant
DX: M26.643 Arthritis of bilateral temporomandibular joint (principal); Z98.890 Other specified postprocedural states
CPT/HCPCS: 70110

== ENCOUNTER 2025-02-09 14:10 | Outpatient (CLI) | payer MEDICARE, SELFPAY ==
[2025-02-09 19:17] LABS: Hematocrit 48.0 % (42.0-52.0); Hemoglobin 16.1 g/dL (14.0-18.0); Immature Granulocyte Percent A 0.3 % (0-0.5); Lymphocytes Absolute Auto 2.54 K/mm3 (0.9-3.2); Mean Corpuscular HGB Conc 33.5 g/dl (32-36); Mean Corpuscular Hemoglobin 31.6 pg (26-34); Mean Corpuscular Volume 94.1 fl (80-100); Nucleated Red Blood Cells Absolute Auto 0.000 K/mm3 (0.0-0.012); Nucleated Red Blood Cells Perc 0.0 % (0.0-0.2); Platelet Count Result 229 k/mm3 (150-375); Red Blood Count 5.10 M/mm3 (4.6-6.20); White Blood Count 7.3 K/mm3 (4.5-10.0)
[2025-02-09 20:10] LABS: Alanine Aminotransferase 44 U/L (6-50); Albumin Level 3.6 g/dL (3.5-5.1); Alkaline Phosphatase 107 U/L (38-126); Anion Gap 8 mmol/L (4-12); Aspartate Amino Transferase 44 U/L (17-59); Bilirubin,Total 1.0 mg/dL (0.2-1.3); Blood Urea Nitrogen 12 mg/dL (9-20); Calcium 9.3 mg/dL (8.4-10.2); Carbon Dioxide 29 mmol/L (22-30); Chloride 93 mmol/L (98-107); Cholesterol 189 mg/dL (0-200); Estimated Glomerular Filt Rate > 60; Glucose 303 mg/dL (65-110); HDL Direct 45 mg/dL; Potassium 4.4 mmol/L (3.4-5.0); Sodium 130 mmol/L (137-145); Total Protein 7.7 g/dL (6.3-8.2); Triglycerides 97 mg/dL (<150)
[2025-02-09 22:19] LABS: Hemoglobin A1C 13.7 % (<5.7)
== END 2025-02-09 14:11 | disposition home or self-care (01) ==
LOC: ANHGOSHLAB 14:11
PROVIDERS: PCP Family Medicine
DX: R74.8 Abnormal levels of other serum enzymes (principal); E11.9 Type 2 diabetes mellitus without complications; I10 Essential (primary) hypertension; R79.89 Other specified abnormal findings of blood chemistry
CPT/HCPCS: 36415; 80053; 80061; 82248; 83036; 85025